=== PATIENT | male | born 1995 | race Caucasian/White ===

== ENCOUNTER 2018-07-22 04:53 | Emergency (ER) | payer OTHER ==
[2018-07-22] MEDS ORDERED: NORMAL SALINE 1000 ML 1,000 ML IV ONE (06:22)
[2018-07-22 07:13] LABS: ANION GAP 8 (5-19); BLOOD UREA NITROGEN 10 mg/dL (7-20); CALCIUM 10.1 mg/dL (8.4-10.2); CARBON DIOXIDE 30 mmol/L (22-30); CHLORIDE 105 mmol/L (98-107); GLUCOSE 88 mg/dL (75-110); POTASSIUM 4.5 mmol/L (3.6-5.0); SODIUM 142.5 mmol/L (137-145)
--- NOTE | 2018-07-22 07:19 | ER Document Report ---
ED General - General Chief Complaint: Nose Bleed Stated Complaint: NOSEBLEED Time Seen by Provider: 07/22/18 06:09 Primary Care Provider: MERLE MARCANO DO [ASSOCIATE] - Follow up as needed Notes: Patient is a 23-year-old male that comes to the emergency department for chief complaint of nosebleed and possible dehydration. 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 He was evaluated, admitted to possible dehydration from being out of the sun constantly for the past 2 days, he was sent in for evaluation as a result. Patient denies trauma to the nose, states he has nosebleeds at frequent intervals, he has never had surgery for this and has never required significant intervention. He states he has been drinking a lot of fluids, he states his urine is still clear, he denies muscle cramps, vomiting, chest pain, dizziness, shortness of breath. He states his family also has a history of frequent nosebleeds. TRAVEL OUTSIDE OF THE [place] IN LAST 30 DAYS: No Past Medical History - General Information source: Patient - Social History Smoking Status: Never Smoker Frequency of alcohol use: None Drug Abuse: None Lives with: Family Family History: Reviewed & Not Pertinent Patient has suicidal ideation: No Patient has homicidal ideation: No - Medical History Medical History: Negative Renal/ Medical History: Denies: Hx Peritoneal Dialysis Surgical Hx: Negative - Immunizations Immunizations up to date: Yes Hx Diphtheria, Pertussis, Tetanus Vaccination: Yes Review of Systems - Review of Systems Constitutional: See HPI EENT: See HPI Cardiovascular: No symptoms reported Respiratory: No symptoms reported Gastrointestinal: No symptoms reported Genitourinary: No symptoms reported Male Genitourinary: No symptoms reported Musculoskeletal: No symptoms reported Skin: No symptoms reported Hematologic/Lymphatic: No symptoms reported Neurological/Psychological: No symptoms reported Physical Exam - Vital signs Vitals: Temp Pulse Resp BP Pulse Ox 97.7 F 59 L 18 115/69 97 07/22/18 05:01 07/22/18 05:01 07/22/18 05:01 07/22/18 05:01 07/22/18 05:01 - Notes Notes: GENERAL: Alert, interacts well. No acute distress. HEAD: Normocephalic, atraumatic. EYES: Pupils equal, round, and reactive to light. Extraocular movements intact. ENT: Oral mucosa moist, tongue midline. Oropharynx unremarkable. No bleeding in the posterior pharynx. Airway patent. Nares patent, no nasal septal hematoma, there is an area of dried epistaxis in the left nare over the anterior aspect, no current bleeding. TM's intact. NECK: Full range of motion. Supple. Trachea midline. LUNGS: Clear to auscultation bilaterally, no wheezes, rales, or rhonchi. No respiratory distress. HEART: Regular rate and rhythm. No murmur ABDOMEN: Soft, non-tender. Non-distended. Bowel sounds present in all 4 quadrants. GENITOURINARY: Deferred EXTREMITIES: Moves all 4 extremities spontaneously. No edema, normal radial and dorsalis pedis pulses bilaterally. No cyanosis. BACK: no cervical, thoracic, lumbar midline tenderness. No saddle anesthesia, normal distal neurovascular exam. NEUROLOGICAL: Alert and oriented x3. Normal speech. [cranial nerves II through XII grossly intact]. PSYCH: Normal affect, normal mood. SKIN: Warm, dry, normal turgor. No rashes or lesions noted. Course - Re-evaluation Re-evalutation: Patient does not have a current nosebleed. There appears to be a dried up area in the anterior part of the left nare where he was bleeding from, oral pharyngeal exam unremarkable, physical exam unremarkable, vital signs unremarkable. Patient is alert and well-appearing. He is requesting IV fluids although he reports clear urine, denies muscle cramps, vomiting, or any other concerning symptoms that would suggest rhabdomyolysis. No significant blood loss reported to suspect concerning anemia. He denies chest pain or shortness of breath, denies dizziness. Patient was given IV fluids, chemistry was checked and completely unremarkable, patient will be referred to ENT for frequent nosebleeds, discussed work-up, follow-up, expectations, return precautions. Patient states understanding and agreement. - Vital Signs Vital signs: Temp Pulse Resp BP Pulse Ox 97.7 F 59 L 18 115/69 97 07/22/18 05:01 07/22/18 05:01 07/22/18 05:01 07/22/18 05:01 07/22/18 05:01 - Laboratory Result Diagrams: 07/22/18 06:40 Discharge - Discharge Clinical Impression: Epistaxis, Dehydration Condition: Stable Disposition: HOME, SELF-CARE Additional Instructions: Your laboratory work-up does not show any concerning a normality, your physical examination is reassuring. I do recommend a follow-up with the ENT referral listed because of your frequent nosebleeds. There is a significant chance of re-bleeding following a nosebleed. Proper care makes this less likely. Do not touch the nose for 24 hours. Do not blow the nose forcefully for one week. After 24 hours, gently apply topical antibiotic or Vaseline ointment to both nostrils with the tip of a finger or carefully with a Q-tip, three times a day, for one week. It's normal to have a bloody mucous discharge for a few days. If active bleeding recurs, blow all the blood from the nose, then sit quietly and pinch the nose as firmly as possible for 10 minutes. If this does not stop the bleeding, return for further care. Follow-up with ENT referral listed. Return for any concerning symptoms. Forms: Return to Work Referrals: MERLE MARCANO DO [ASSOCIATE] - Follow up as needed
[2018-07-22 07:47] VITALS: BP 118/64
== END 2018-07-22 07:48 | disposition home or self-care (01) ==
LOC: ER 04:53
DX: R04.0 Epistaxis (principal); E86.0 Dehydration
CPT/HCPCS: 99283; 96360; 36415; 80048; J7030

== ENCOUNTER 2019-07-05 12:07 | Emergency (ER) | payer OTHER ==
[2019-07-05 12:11] VITALS: BP 129/72
--- NOTE | 2019-07-05 12:24 | ER Document Report ---
HPI - HPI Time Seen by Provider: 07/05/19 12:17 Notes: 24-year-old male presents emergency room for complaints of right foot pain after he stepped on a foreign body 2 days ago, he thinks he has glass but is not sure. States his tried to remove it and she thinks that still in his foot. T tammimatthieu is up-to-date. No active bleeding. Able to bear full weight. Denies any drainage from wound. Has not tried any [id number] medications. Worse with palpating area, better with elevation. Denies fevers, chills, chest pain,palpitations, shortness of breath, dyspnea, nausea, vomiting, diarrhea, abdominal pain, hematuria,blurred vision, double vision, loss of vision, speech changes, LH, dizziness, syncope, headaches, wheezing, ST, URI, neck pain, weakness, bowel or bladder dysfunction, saddle anesthesia, numbness or tingling in bilateral upper or lower extremities equally, muscle paralysis, weakness in bilateral upper or lower extremities equally or rash. REVIEW OF SYSTEMS:reviewed vital signs by RN CONSTITUTIONAL : Denies fever, chills, or sweats. Denies recent illness. EENT: Denies eye, ear, throat, or mouth pain or symptoms. Denies nasal or sinus congestion or discharge. Denies throat, tongue, or mouth swelling or difficulty swallowing. CARDIOVASCULAR: Denies chest pain. Denies palpitations or racing or irregular heart beat. Denies ankle edema. RESPIRATORY: Denies cough, cold, or chest congestion. Denies shortness of breath, difficulty breathing, or wheezing. GASTROINTESTINAL: Denies abdominal pain or distention. Denies nausea, vomiting, or diarrhea. Denies blood in vomitus, stools, or per rectum. Denies black, tarry stools. Denies constipation. GENITOURINARY: Denies difficulty urinating, painful urination, burning, frequency, blood in urine, or discharge. MUSCULOSKELETAL: Denies back or neck pain or stiffness. Denies joint pain or swelling. SKIN: puncture wound to right heel. Denies rash, lesions or sores. HEMATOLOGIC : Denies easy bruising or bleeding. LYMPHATIC: Denies swollen, enlarged glands. NEUROLOGICAL: Denies confusion or altered mental status. Denies passing out or loss of consciousness. Denies dizziness or lightheadedness. Denies headache. Denies weakness or paralysis or loss of use of either side. Denies problems with gait or speech. Denies sensory loss, numbness, or tingling. Denies seizures. PSYCHIATRIC: Denies anxiety or stress. Denies depression, suicidal ideation, or homicidal ideation. ALL OTHER SYSTEMS REVIEWED AND NEGATIVE. Dictation was performed using [employer] voice recognition software PHYSICAL EXAMINATION: GENERAL: Well-appearing, well-nourished and in no acute distress. HEAD: Atraumatic, normocephalic. EYES: Pupils equal round and reactive to light, extraocular movements intact, sclera anicteric, conjunctiva are normal. ENT: Nares patent, oropharynx clear without exudates. Moist mucous membranes. NECK: Normal range of motion, supple without lymphadenopathy LUNGS: Breath sounds clear to auscultation bilaterally and equal. No wheezes rales or rhonchi. HEART: Regular rate and rhythm without murmurs ABDOMEN: Soft, nontender, nondistended abdomen. No guarding, no rebound. No masses appreciated. Musculoskeletal: Normal range of motion, no pitting or edema. No cyanosis. NEUROLOGICAL: Cranial nerves grossly intact. Normal speech, normal gait. Normal sensory, motor exams PSYCH: Normal mood, normal affect. SKIN: Warm, Dry, normal turgor, no rashes or lesions noted. Puncture wound to right plantar aspect on heel. No surrounding erythema induration warmth to touch. Unable to palpate any foreign body puncture wound. No active bleeding. Cap refill less than 3 seconds, skin warm to touch. Able to bear full weight Past Medical History - General Information source: Patient - Social History Smoking Status: Unknown if Ever Smoked Family History: Reviewed & Not Pertinent Renal/ Medical History: Denies: Hx Peritoneal Dialysis - Immunizations Immunizations up to date: Yes Hx Diphtheria, Pertussis, Tetanus Vaccination: Yes Vertical Provider Document - CONSTITUTIONAL Agree With Documented VS: Yes Exam Limitations: No Limitations General Appearance: WD/WN - INFECTION CONTROL TRAVEL OUTSIDE OF THE [place] IN LAST 30 DAYS: No Course - Re-evaluation Re-evalutation: 07/05/19 12:23 Afebrile vital stable no distress. Nurses notes reviewed. right foot x-ray negative for any acute fracture or foreign body or dislocation. Discussed with patient that glass fragments do not typically show up on x-ray. Since patient's was taking through his skin with a tweezer, will place patient on antibiotic therapy. His tetanus is up-to-date. Discussed following up with a surgeon if he has continued pain for reevaluation. After performing a Medical Screening Examination, I estimate there is LOW risk for OPEN FRACTURE, COMPARTMENT SYNDROME, TENDON RUPTURE, ACUTE NEUROVASCULAR INJURY, or RETAINED FOREIGN BODY, thus I consider the discharge disposition reasonable. Also, there is no evidence or peritonitis, sepsis, or toxicity. I have reevaluated this patient multiple times and no significant life threatening changes are noted. The patient and I have discussed the diagnosis and risks, and we agree with discharging home with close follow-up with the understanding that symptoms and presentations can change. We also discussed returning to the Emergency Department immediately if new or worsening symptoms occur. We have discussed the symptoms which are most concerning (e.g., changing or worsening pain, fever, numbness, weakness, cool or painful digits) that necessitate immediate return. 07/05/19 13:17 - Vital Signs Vital signs: Temp Pulse Resp BP Pulse Ox 97.8 F 74 16 129/72 H 98 07/05/19 12:10 07/05/19 12:10 07/05/19 12:10 07/05/19 12:10 07/05/19 12:10 Discharge - Discharge Clinical Impression: Right foot pain Condition: Stable Disposition: HOME, SELF-CARE Instructions: Foot Laceration ([facility]) Additional Instructions: No foreign body seen on your x-ray however you should follow-up with a surgeon for reevaluation to see if there is a foreign body. Please take antibiotic as precautionary measure twice a day for 10 days with food. Apply heat 20 minutes on 20 minutes several times a day and soak in hot water as needed. Return immediately for any new or worsening symptoms. Follow up with primary care provider, call tomorrow to make followup appoin tment. Prescriptions: Amoxicillin/Potassium Clav [Augmentin 875-125 Tablet] 1 tab PO Q12 10 Days #20 tablet Referrals: LUIS BARCENAS MD [COMMUNITY BASED STAFF] - Follow up as needed JORDAN STRANGE JR, DO [ACTIVE PROVISIONAL STAFF] - Follow up as needed RADHA ADAMS MD [ACTIVE STAFF] - Follow up as needed
--- NOTE | 2019-07-05 13:01 | RADIOLOGY REPORT (SQ) ---
EXAM DESCRIPTION: FOOT RIGHT COMPLETE IMAGES COMPLETED DATE/TIME: 07/05/2019 12:36 pm REASON FOR STUDY: right foot pain, stepped on fb x 2 days ago COMPARISON: None. NUMBER OF VIEWS: Three views. TECHNIQUE: AP, lateral and oblique radiographic images acquired of the right foot. LIMITATIONS: None. FINDINGS: MINERALIZATION: Normal. BONES: No acute fracture or dislocation. No worrisome bone lesions. JOINTS: No effusions. SOFT TISSUES: No soft tissue swelling. No foreign body. OTHER: No other significant finding. IMPRESSION: NEGATIVE STUDY OF THE RIGHT FOOT. NO RADIOGRAPHIC EVIDENCE OF ACUTE INJURY. TECHNICAL DOCUMENTATION: JOB ID: [id number] 2010 [employer]- All Rights Reserved Reading location - IP/workstation name: [email or web address]
== END 2019-07-05 13:10 | disposition home or self-care (01) ==
LOC: ER 12:07
DX: S91.331A Puncture wound without foreign body, right foot, initial encounter (principal); M79.671 Pain in right foot; W22.8XXA Striking against or struck by other objects, initial encounter
CPT/HCPCS: 99283